=== PATIENT | male | born 1965 | race Caucasian/White ===

== ENCOUNTER → 2019-09-08 11:05 | Outpatient (BNVA) | payer OTHER, SELFPAY | PROVIDERS: Family Provider Family Medicine; PCP Family Medicine; Visit Provider Family Medicine | DX: Z13.6 Encounter for screening for cardiovascular disorders (principal); Z13.220 Encounter for screening for lipoid disorders; I50.30 Unspecified diastolic (congestive) heart failure; N52.9 Male erectile dysfunction, unspecified; F51.01 Primary insomnia | CPT/HCPCS: 80048; 80061 ==

== ENCOUNTER → 2019-10-12 10:35 | Outpatient (BNVA) | payer OTHER, SELFPAY | PROVIDERS: Family Provider Family Medicine; PCP Family Medicine; Visit Provider Family Medicine | DX: I10 Essential (primary) hypertension (principal); I25.810 Atherosclerosis of coronary artery bypass graft(s) without angina pectoris; G89.18 Other acute postprocedural pain | CPT/HCPCS: 80048 ==

== ENCOUNTER → 2019-11-02 17:35 | Outpatient (BNVA) | payer OTHER, SELFPAY | PROVIDERS: Family Provider Family Medicine; PCP Family Medicine; Visit Provider Family Medicine | DX: I11.0 Hypertensive heart disease with heart failure (principal); I50.9 Heart failure, unspecified; I25.810 Atherosclerosis of coronary artery bypass graft(s) without angina pectoris; G89.18 Other acute postprocedural pain; M62.830 Muscle spasm of back | CPT/HCPCS: 80048 ==

== ENCOUNTER 2020-01-26 14:16 | Outpatient (CLI) | payer OTHER, SELFPAY ==
--- NOTE | 2020-01-26 14:23 | XR_ITS ---
WS: [id number] CHEST 2 VIEWS HISTORY: chest pain COMPARISON: None available. Lungs: Mild hyperexpansion of the lungs. Benign granuloma RIGHT lung base. Prior CABG. Cardiac size: Normal. Mediastinum/Aorta: Normal mediastinum. Bones: Normal. XR/XR chest 2V* [id number] IMPRESSION: Prior CABG. No acute cardiopulmonary disease.
== END 2020-01-26 14:17 | disposition home or self-care (01) ==
LOC: RAD 14:20
PROVIDERS: PCP Family Medicine; Visit Provider Hospitalist
DX: R07.9 Chest pain, unspecified (principal); Z95.1 Presence of aortocoronary bypass graft
CPT/HCPCS: 71046

== ENCOUNTER → 2020-04-05 18:04 | Outpatient (BNVA) | payer OTHER, SELFPAY | PROVIDERS: PCP Family Medicine; Visit Provider Family Medicine | DX: M62.830 Muscle spasm of back (principal); I10 Essential (primary) hypertension; I25.810 Atherosclerosis of coronary artery bypass graft(s) without angina pectoris; G89.18 Other acute postprocedural pain | CPT/HCPCS: 80048 ==

== ENCOUNTER → 2020-05-10 15:30 | Outpatient (BNVA) | payer OTHER, SELFPAY | PROVIDERS: PCP Family Medicine; Visit Provider Emergency Medicine | DX: S99.922A Unspecified injury of left foot, initial encounter (principal); X58.XXXA Exposure to other specified factors, initial encounter | CPT/HCPCS: 73660 ==

== ENCOUNTER 2020-11-29 09:02 | Outpatient (CLI) | payer OTHER, SELFPAY ==
--- NOTE | 2020-11-29 09:15 | ECG_ITS ---
[facility] Test Date: 2020-11-29 Pat Name: Juancho Valencia Department: Room: Gender: Male Box Packer: : 1965 Requested By: Didi Hopper Order Number: [id number] Fox MD: Didi Hopper M.D. Interpretive Statements NAME OF STUDY: LEXISCAN SESTAMIBI STRESS TEST INDICATION: Dyspnea on Exertion PROCEDURE: At the baseline, the blood pressure was 145/88 mm Hg with a heart rate of 56 bpm. The electrocardiogram showed sinus bradycardia, normal axis and possible old anteroseptal infarct. ??? The Lexiscan was infused over a period of 20 seconds. A total of 0.4 milligrams of Lexiscan was infused. The stress phase was continued for a total of 5 minutes. Heart rate at the end of the stress phase was 81 bpm with a blood pressure of 153/94 mm Hg. The EKG at the peak infusion revealed sinus rhythm with no significant ST-T wave changes. Isolated PVC's noted during stress and in recovery. ??? Sestamibi was injected 20 seconds after the Lexiscan infusion. ??? Blood pressure at the end of the recovery phase was 156/98 mm Hg with a heart rate of 76 beats per minute. ??? CONCLUSION: 1. No significant EKG changes with the LexiScan infusion. 2. No LexiScan induced chest pain or cardiac arrhythmia. 3. Normal blood pressure and heart rate response. 4. Sestamibi/sestamibi perfusion scan pending; see separate report. RESULTS TO PAYAM PLASCENCIA Electronically Signed On 12-02-2020 21:20:56 CDT by Didi Hopper M.D. [id number]
--- NOTE | 2020-11-29 09:15 | NMCV_ITS ---
NM regis perf SPECT r/s* [id number] Juancho Valencia Age: 55 Gender: M : 1965 Exam Date: 11/29/2020 10:48 Ordering Phys: Didi Hopper MD ([email or web address]) Technologist: CIARA Chan Exam Location: [facility] Indications: Dyspnea on exertion STRESS TEST Please see separate stress test report in [facility] for full findings IMAGE PROTOCOL Rest/Stress 1 Lexiscan Day Radiopharmaceutical Dose (mCi) Administration Site Administered by Rest: Tc-99m 11.0 IV CIARA Chan Sestamibi Stress:Tc-99m 32.6 IV CIARA Chan Sestamibi Rest: 29-Nov-2020 60 Discovery 630 Stress: 29-Nov-2020 45 Discovery 630 0.4mg Lexiscan. Images obtained in supine and prone position. SPECT RESULTS Technical Quality: Good Raw Data Analysis: Normal Image Corrections: No attenuation or motion correction applied Summed Stress Score: 9 Summed Rest Score: 1 Summed Difference Score: 8 PERFUSION FINDINGS Small sized perfusion abnormality of moderate severity of mid to apical lateral, apical inferior and sharma on stress images. FUNCTIONAL RESULTS (calculated via Gated SPECT) Stress Image LV EF (%): 53 Stress EDV (mL):119 TID: 1.14 Stress ESV (mL):56 FUNCTIONAL FINDINGS: The left ventricle is normal in size. Transient Ischemia Dilatation of 1.1. There is normal left ventricular systolic function. The left ventricular ejection fraction is normal with a value of 53%. There is normal left ventricular wall thickening. Normal end diastolic and end systolic volumes. IMPRESSIONS 1. Small sized reversible perfusion abnormality of moderate severity of mid to apical lateral, apical inferior and sharma. 2. This may represent small area of ischemia in right coronary/circumflex artery territory. 3. Overall left ventricular systolic function is normal without regional wall motion abnormalities. 4. The left ventricular ejection fraction is normal with a value of 53%. 5. No prior similar studies to compare. Didi Hopper MD (Electronically Signed) Final Date: 02 December 2020 21:54 S
[2020-11-29 09:29] VITALS: BMI 32.1
--- NOTE | 2020-11-29 11:26 | SUR.PREOP ---
Patient reports no pain or discomfort prior to the start of the procedure.
[2020-11-29] MEDS: regadenoson 0.4 Mg/5 ml Syringe IVP (11:27)
[2020-11-29 11:45] VITALS: BP 156/78; PULSE 78
== END 2020-11-29 09:03 | disposition home or self-care (01) ==
LOC: RAD 09:09 → CDL 09:26
PROVIDERS: PCP Family Medicine; Visit Provider Internal Medicine Cardiovascular Disease
DX: R06.00 Dyspnea, unspecified (principal)
CPT/HCPCS: 78452; 93017; A9500; J2785

== ENCOUNTER → 2021-02-23 10:01 | Outpatient (BNVA) | payer OTHER, SELFPAY | PROVIDERS: PCP Family Medicine; Visit Provider Nurse Practitioner Family | DX: N39.0 Urinary tract infection, site not specified (principal) | CPT/HCPCS: 81000 ==

== ENCOUNTER → 2021-03-14 14:52 | Outpatient (BNVA) | payer OTHER, SELFPAY | PROVIDERS: PCP Family Medicine; Visit Provider Family Medicine | DX: E78.5 Hyperlipidemia, unspecified (principal); I50.21 Acute systolic (congestive) heart failure; J44.9 Chronic obstructive pulmonary disease, unspecified; I11.0 Hypertensive heart disease with heart failure | CPT/HCPCS: 80053; 80061; 83735; 85025 ==

== ENCOUNTER → 2021-04-13 18:45 | Outpatient (BNVA) | payer OTHER, SELFPAY | PROVIDERS: PCP Family Medicine; Visit Provider Emergency Medicine | DX: M25.521 Pain in right elbow (principal); Z20.822 Contact with and (suspected) exposure to COVID-19 | CPT/HCPCS: 87635 ==

== ENCOUNTER → 2021-05-08 14:34 | Outpatient (BNVA) | payer OTHER, SELFPAY | PROVIDERS: PCP Family Medicine; Visit Provider Family Medicine | DX: I12.9 Hypertensive chronic kidney disease with stage 1 through stage 4 chronic kidney disease, or unspecified chronic kidney disease; M79.631 Pain in right forearm; I25.810 Atherosclerosis of coronary artery bypass graft(s) without angina pectoris; F51.01 Primary insomnia; M62.830 Muscle spasm of back; N18.31 Chronic kidney disease, stage 3a; G89.29 Other chronic pain; G89.18 Other acute postprocedural pain | CPT/HCPCS: 80048; 81000 ==

== ENCOUNTER → 2021-05-29 09:02 | Outpatient (BNVA) | payer OTHER, SELFPAY | PROVIDERS: PCP Family Medicine; Referring Provider Family Medicine; Visit Provider Specialist | DX: M25.521 Pain in right elbow (principal) | CPT/HCPCS: 73080 ==

== ENCOUNTER → 2021-06-05 14:52 | Outpatient (BNVA) | payer OTHER, SELFPAY | PROVIDERS: PCP Family Medicine; Referring Provider Family Medicine; Visit Provider Specialist | DX: R20.0 Anesthesia of skin (principal); R20.2 Paresthesia of skin | CPT/HCPCS: 95908 ==

== ENCOUNTER 2021-06-24 15:01 | Outpatient (CLI) | payer OTHER, SELFPAY ==
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
== END 2021-06-24 15:02 | disposition home or self-care (01) ==
PROVIDERS: PCP Family Medicine; Visit Provider Specialist
DX: M25.521 Pain in right elbow (principal); M25.421 Effusion, right elbow
CPT/HCPCS: 73221

== ENCOUNTER → 2022-04-29 09:35 | Outpatient (BNVA) | payer OTHER, SELFPAY | PROVIDERS: PCP Family Medicine; Visit Provider Family Medicine | DX: I10 Essential (primary) hypertension (principal); I50.9 Heart failure, unspecified; I25.810 Atherosclerosis of coronary artery bypass graft(s) without angina pectoris; M79.631 Pain in right forearm; M79.18 Myalgia, other site; G89.29 Other chronic pain; F51.01 Primary insomnia; M62.830 Muscle spasm of back; M25.561 Pain in right knee; R07.89 Other chest pain; E78.5 Hyperlipidemia, unspecified | CPT/HCPCS: 71046; 73562; 80053; 80061 ==

== ENCOUNTER → 2022-05-30 08:26 | Outpatient (BNVA) | payer OTHER, SELFPAY | PROVIDERS: PCP Family Medicine; Visit Provider Student in an Organized Health Care Education/Training Program | DX: M25.561 Pain in right knee (principal); M23.361 Other meniscus derangements, other lateral meniscus, right knee | CPT/HCPCS: 73562; 73560; 73565; 99203; 99213 ==

== ENCOUNTER 2022-08-26 12:37 | Outpatient (CLI) | payer OTHER, SELFPAY ==
--- NOTE | 2022-08-26 13:00 | MR_ITS ---
WS: [id number] MRI RIGHT KNEE HISTORY: RIGHT PATELLA PAIN COMPARISON: Radiographs 05/30/2022 Anterior cruciate ligament: Intact. Posterior cruciate ligament: Intact. Medial collateral ligament: Intact. Posterior lateral corner structures: Intact. Medial menisci: Intrasubstance degeneration in the posterior horn. There is a horizontal tear extendi ng to the inferior articular surface with fraying along the free edge of the posterior horn. Anterior horn is normal. Lateral meniscus: Intact. Normal signal, size and shape. Extensor mechanism: Distal quadriceps tendon and patellar tendons are intact. Fluid and soft tissue: Small joint effusion. No Franco's cyst. Osseous and articular structures: Patellofemoral compartment: Mild narrowing of patellofemoral joint space. Very mild fissuring involvi ng the patellar eminence and medial patellar facet. No marrow edema or displacement. Medial compartment: Mild narrowing of the medial compartment. There is a superficial defect within th e cartilage along the weightbearing surface of the femoral condyle. This is at the site of meniscal f raying of the posterior horn. No marrow edema. Lateral compartment: Small amount of fluid in the lateral proximal compartment extending into the int ercondylar notch. There is a very small loculated mass with cystic component within the infrapatellar fat pad extending to the distal ACL. This may be a small ganglion measuring 11 x 8 mm. MR/MR knee RT wo con* [id number] IMPRESSION: 1. Horizontal tear posterior horn medial meniscus with adjacent fraying of the free edge. 2. Focal cartilage injury weightbearing surface medial femoral condyle. 3. Lobulated cystic mass measuring 11 x 8 mm in the infrapatellar fat pad asso ciated with the distal ACL. Suspicious for ganglion. 4. Small joint effusion.
== END 2022-08-26 12:38 | disposition home or self-care (01) ==
LOC: RAD 12:38
PROVIDERS: PCP Family Medicine; Visit Provider Student in an Organized Health Care Education/Training Program
DX: M25.461 Effusion, right knee; S83.241A Other tear of medial meniscus, current injury, right knee, initial encounter; X58.XXXA Exposure to other specified factors, initial encounter
CPT/HCPCS: 73721

== ENCOUNTER 2022-09-05 15:27 | Emergency (ER) | payer OTHER, SELFPAY ==
[2022-09-05 15:31] VITALS: BP 176/116; PULSE 70; RESP 16; TEMP 36.9; O2SAT 98; BMI 32.8
--- NOTE | 2022-09-05 16:34 | ED_ITS ---
HPI - Extremity Problem General: Chief complaint: Extremity Problem,Nontraumatic Stated complaint: right leg numbness Time Seen by Provider: 09/05/22 16:05 Source: patient Mode of arrival: ambulatory History of Present Illness: 56-year-old male who presents to the emergency room complaints of left leg weakness and numbness that began suddenly earlier today around 10:00 yesterday he had an injection in the left knee for pain with steroid injection while he was walking swelling suddenly he was unable to move the leg. It only affects the right leg and only affects from the knee distally. He states he still cannot move it. MD Complaint: other (Right lower leg paresthesias and anesthesia) Onset (ago): hour(s) Pain Consistency: constant Location: right and lower extremity Quality: other (Anesthesia) Radiation: distal Relieving factors: nothing Exacerbating factors: nothing Associated symptoms: Deny arthralgias, chest pain, fever(s), myalgias, rash or short of breath Review of Systems Const: Denies: fever(s), chills, fatigue or malaise ENMT: Denies: throat pain, ear or mastoid pain, nasal discharge or nasal congestion Card: Denies: chest pain Resp: Denies: dyspnea, productive cough or non-productive cough GI: Denies: abdominal pain, nausea, vomiting, hematemesis, coffee ground emesis, diarrhea, constipation, bloating, hematochezia or melena : Denies: flank pain, dysuria, urinary frequency or urinary urgency Musc: Reports: other (Extremity weakness and numbness); Denies: neck pain or back pain Skin/Breast: Denies: rash PFSH ED PFSH: Medical History Coronary artery disease involving coronary bypass graft 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 Dyslipidemia Erectile dysfunction Essential hypertension GERD (gastroesophageal reflux disease) Onychomycosis Primary insomnia Surgical History H/O heart surgery History of appendectomy History of colonoscopy History of right knee surgery Social History Quit status (tobacco): has quit using tobacco Year quit tobacco: 2019 Second hand smoke exposure: No Alcohol intake: never History of recent travel: No Physical Exam Const: GENERAL APPEARANCE: cooperative and comfortable ORIENTATION/CONSCIOUSNESS: Yes awake, Yes oriented to person, Yes oriented to place and Yes oriented to time HENMT: COMMON NORMALS: normocephalic and atraumatic HEAD & SCALP: normocephalic and atraumatic Resp: COMMON NORMALS: normal respiratory effort, No retractions, No use of accessory muscles and clear to auscultation bilaterally AUSCULTATION: clear to auscultation bilaterally Cardio: COMMON NORMALS: regular rate, regular rhythm and No murmurs present (Cardio) RATE: regular rate RHYTHM: regular rhythm GI: COMMON NORMALS: Soft to palpation and No hepatosplenomegaly present AUS CULTATION: Yes normoactive bowel sounds PALPATION: Yes Soft to palpation, No Tenderness to palpation present (GI), No Guarding due to palpation present (GI) and Yes No hepatosplenomegaly present Extremity: COMMON NORMALS: normal to inspection OTHER: Peripheral pulses normal bilaterally Patient consents sharp touch on the sole of the foot he states that actually fe els good only scratch the foot and attempt to do a Babinski's he does not have much reaction at all and how with attempt on the density reflex. Unable to elicit Achilles tendon reflex on the right leg patellar tendon +2/4. Sensation absent to the level of the knee and a small area on the lateral distal thigh on the right leg the remainder of the right upper leg sensation is equal to the labs. No other extremity deficits with right compared to left. He is unable to flex at the knee he can flex slightly at the hip but is very weak. The left leg is normal. Neuro: SENSORIUM/ORIENTATION: Yes oriented to person, Yes oriented to place and Yes oriented to time Skin: COMMON NORMALS: no rashes or lesions noted GENERAL SKIN EXAM: no rashes or lesions noted Course Vital Signs: Vital signs: Vital Signs Temperature 98.4 F 09/05/22 15:31 Pulse Rate 70 09/05/22 15:31 Respiratory Rate 16 09/05/22 15:31 Blood Pressure 182/95 09/05/22 17:29 Pulse Oximetry 98 09/05/22 15:31 Oxygen Delivery Me thod 09/05/22 15:31 MDM - Extremity (Nontraumatic) Medical Decision Making Care signed out to Dr. Lugo at change of shift. See final notes for diagnosis and disposition. Lab Data 09/05/22 17:11 09/05/22 17:[address] 09/05/22 17:00 IMPRESSION: Negative CT examination of the head. No acute intracranial abnormalities. Laboratory Results WBC 7.6 10^3/uL (4.0-10.0) 09/05/22 17:11 RBC 4.98 10^6/uL (4.1-5.3) 09/05/22 17:11 Hgb 15.7 g/dL (11.7-16.6) 09/05/22 17:11 Hct 46.5 % (42.0-52.0) 09/05/22 17:11 MCV 93.4 fl (80-94) 09/05/22 17:11 MCH 31.5 pg (28.0-34.0) 09/05/22 17:11 MCHC 33.8 g/dL (30.0-36.0) 09/05/22 17:11 RDW 13.2 % (12.1-15.1) 09/05/22 17:11 Plt Count 215 10^3/cmm (130-400) 09/05/22 17:11 MPV 10.1 fL (7.4-10.4) 09/05/22 17:11 Neut % (Auto) 68.4 % 09/05/22 17:11 Lymph % (Auto) 18.9 % 09/05/22 17:11 [place] % (Auto) 10.2 % 09/05/22 17:11 Eos % (Auto) 1.7 % 09/05/22 17:11 Baso % (Auto) 0.5 % 09/05/22 17:11 Neut # (Auto) 5.20 10^3/uL (1.8-7.7) 09/05/22 17:11 Lymph # (Auto) 1.4 10^3/uL (0.8-4.8) 09/05/22 17:11 [place] # (Auto) 0.8 10^3/uL (0.2-0.9) 09/05/22 17:11 Eos # (Auto) 0.1 10^3/uL (0.0-0.8) 09/05/22 17:11 Baso # (Auto) 0.0 10^3/uL (0.0-0.1) 09/05/22 17:11 Nucleated RBC % (auto) 0 % 09/05/22 17:11 Nucleated RBCs # 0.0 /100WBC 09/05/22 17:11 Sodium 136 mmol/L (136-145) 09/05/22 17:11 Potassium 4.0 mmol/L (3.5-5.1) 09/05/22 17:11 Chloride 104 mmol/L (98-107) 09/05/22 17:11 Carbon Dioxide 23 mmol/L (22-29) 09/05/22 17:11 Anion Gap 13.0 (5-19) 09/05/22 17:11 BUN 15 mg/dL (6-20) 09/05/22 17:11 Creatinine 1.0 mg/dL (0.7-1.2) 09/05/22 17:11 Glucose 81 mg/dL (65-115) 09/05/22 17:11 Calcium 8.7 mg/dL (8.5-10.5) 09/05/22 17:11 Total Bilirubin 0.2 mg/dL (0.15-1.2) 09/05/22 17:11 AST 24 U/L (0-40) 09/05/22 17:11 ALT 36 U/L (0-41) 09/05/22 17:11 Alkaline Phosphatase 81 U/L (40-130) 09/05/22 17:11 Total Protein 7.8 g/dL (6.6-8.7) 09/05/22 17:11 Albumin 4.5 g/dL (3.5-5.2) 09/05/22 17:11 Globulin 3.3 g/dL (1.3-4.6) 09/05/22 17:11 Discharge Plan Discharge Condition: Stable Prescriptions: No Action nitroglycerin 0.4 mg tablet, sublingual 0.4 mg sublingual Q5M PRN (Reason: chest pain) Qty: 25 3RF Rx Instructions: do not exceed 3 doses per episode metoprolol succinate 25 mg tablet extended release 24 hr 25 mg PO DAILY amlodipine 10 mg tablet 10 mg PO DAILY 90 Days Qty: 90 1RF furosemide [Lasix] 20 mg tablet 20 mg PO BID PRN (Reason: edema) 90 Days Qty: 180 1RF Rx Instructions: take 1 daily, may take 2 if needed as directed by aspirin [Adult Low Dose Aspirin] 81 mg tablet,delayed release (DR/EC) 81 mg PO DAILY Qty: 90 1RF isosorbide mononitrate 30 mg tablet extended release 24 hr 30 mg PO DAILY 90 Days Qty: 90 1RF gabapentin 400 mg capsule 400 mg PO TID MDD 3 caps PRN (Reason: pain) 30 Days Qty: 90 5RF potassium chloride 10 mEq tablet extended release 10 meq PO DAILY 90 Days Qty: 90 1RF trazodone 100 mg tablet 100 mg PO .at bedtime 90 Days Qty: 90 1RF tizanidine 4 mg tablet 4 mg PO BID PRN (Reason: muscle spasticity) 30 Days Qty: 60 5RF Rx Instructions: for back pain Referrals: Mariela Hein MD [Primary Care Provider] - Coding Level of Care Code ED Terrazzo Tile Maker for Chg Fwd Exam Detailed
--- NOTE | 2022-09-05 16:58 | USR_ITS ---
PROCEDURE INFORMATION: Exam: US Duplex Right Lower Extremity Veins, Limited Exam date and time: 09/05/2022 5:35 PM Age: 56 years old Clinical indication: Swelling (edema) of limb and other: Parathesia; Lower extremity, right TECHNIQUE: Imaging protocol: Real-time Duplex ultrasound of the Right Lower Extremity with 2-D jansen scale, color Doppler flow and spectral waveform analysis with image documentation. Limited exam was focused on the right lower extremity veins. COMPARISON: No relevant prior studies available. FINDINGS: Right deep veins: Unremarkable. The common femoral, femoral, proximal profunda femoral, popliteal, posterior tibial, and peroneal veins are patent without thrombus. Normal Doppler waveforms. Normal compressibility and/or augmentation response. Right superficial veins: Unremarkable. Saphenofemoral junction is patent without thrombus. Soft tissues: Unremarkable. US/[place] [id number] IMPRESSION: No evidence for deep venous thrombosis in the right lower extremity.
--- NOTE | 2022-09-05 16:58 | CTR_ITS ---
PROCEDURE INFORMATION: Exam: CT Lumbar Spine With Contrast Exam date and time: 09/05/2022 5:19 PM Age: 56 years old Clinical indication: Weakness; Additional info: R leg weakness TECHNIQUE: Imaging protocol: Computed tomography of the lumbar spine with contrast. Sagittal and coronal reformatted images were created and reviewed. Radiation optimization: All CT scans at this facility use at least one of these dose optimization techniques: automated exposure control; mA and/or kV adjustment per patient size (includes targeted exams where dose is matched to clinical indication); or iterative reconstruction. Contrast material: OMNI 350; Contrast volume: 100 ml; Contrast route: INTRAVENOUS (IV); COMPARISON: No relevant prior studies available. RADIATION DOSE METRICS: Total DLP (mGy-cm): 877.89 FINDINGS: Bones/joints: Vertebral body height is maintained. No subluxation. Normal bone mineralization. Small/moderate marginal osteophytes at all visualized spinal levels. No acute fracture. No evidence for an epidural hematoma. No evidence for an epidural abscess. T12-L1: Mild bilateral facet hypertrophy. L1-L2: Small broadbased posterior disc bulge. Mild bilateral facet hypertrophy. L2-L3: Small broadbased posterior disc bulge with a left foraminal disc herniation. Mild bilateral facet hypertrophy. Mild left foraminal stenosis. L3-L4: Mild to moderate broad-based posterior disc bulge. Mild bilateral facet hypertrophy. Mild ligamentum flavum thickening. Mild spinal canal stenosis. Mild left foraminal stenosis. L4-L5: Mild to moderate broad-based posterior disc bulge. Mild bilateral facet hypertrophy. Mild ligamentum flavum thickening. Mild spinal canal stenosis. Mild bilateral foraminal stenosis. L5-S1: Jgmf-tq-puvamiai broad-based posterior disc bulge. Mild bilateral facet hypertrophy. Mild ligamentum flavum thickening. Mild bilateral foraminal stenosis. Kidneys and ureters: Simple cyst in the left kidney measuring 2.4 cm (series 5, image 46). Vasculature: Mild atherosclerotic changes in the visualized arteries. No evidence for aortic aneurysm or aortic dissection. Soft tissues: No paravertebral soft tissue abnormality. No radiopaque foreign body. CT/CT lumbar spine w con [id number] IMPRESSION: 1. Multilevel degenerative changes in the lumbar spine. Mild spinal canal stenosis at L3-L4, L4-L5, and L5-S1. Mild left foraminal stenosis at L2-L3 and L3-L4, mild right foraminal stenosis at L3-L4 and mild bilateral foraminal stenosis at L4-L5 and L5-S1. 2. Incidental/nonacute findings are listed in the report.
--- NOTE | 2022-09-05 16:58 | USR_ITS ---
PROCEDURE INFORMATION: Exam: US Duplex Right Lower Extremity Arteries Or Arterial Bypass Grafts Exam date and time: 09/05/2022 5:44 PM Age: 56 years old Clinical indication: Pain; Leg, lower; Right; Additional info: Parathesia TECHNIQUE: Imaging protocol: Right Real-time duplex scan of the arteries or arterial bypass grafts of the right lower extremity with 2-D jansen scale, color Doppler flow and spectral waveform analysis. Images documented and saved. COMPARISON: [place] [id number] 09/05/2022 5:35 PM FINDINGS: Right common femoral artery: No occlusion or significant stenosis. Normal waveform. No pseudoaneurysm in the inguinal region. Right superficial femoral artery: No occlusion or significant stenosis. Normal waveform. Right popliteal artery: No occlusion or significant stenosis. Normal waveform. Right calf/foot arteries: No occlusion or significant stenosis in the visualized arteries. Normal waveforms. Dorsalis pedis artery is patent. Soft tissues: No hematoma or collection. US/[place] [id number] IMPRESSION: No stenosis or occlusion.
--- NOTE | 2022-09-05 17:00 | CTR_ITS ---
PROCEDURE INFORMATION: Exam: CT Head Without Contrast Exam date and time: 09/05/2022 5:16 PM Age: 56 years old Clinical indication: Weakness, extremity; Right; Additional info: R leg weakness TECHNIQUE: Imaging protocol: Computed tomography of the head without contrast. Radiation optimization: All CT scans at this facility use at least one of these dose optimization techniques: automated exposure control; mA and/or kV adjustment per patient size (includes targeted exams where dose is matched to clinical indication); or iterative reconstruction. COMPARISON: No relevant prior studies available. RADIATION DOSE METRICS: Total DLP (mGy-cm): 1088.15 FINDINGS: Brain: Normal. No hemorrhage. No space-occupying masses or areas of mass effect. No edema or midline shift. Cortical sulci are unremarkable for age. Cerebral ventricles: No ventriculomegaly. Paranasal sinuses: Visualized sinuses are unremarkable. No fluid levels. Mastoid air cells: Visualized mastoid air cells are well aerated. Bones/joints: Unremarkable. Soft tissues: Unremarkable. CT/CT head wo con* [id number] IMPRESSION: Negative CT examination of the head. No acute intracranial abnormalities.
[2022-09-05 17:20] LABS: Basophils % 0.5 %; Eosinophils # 0.1 10^3/uL (0.0-0.8); Eosinophils % 1.7 %; Hematocrit 46.5 % (42.0-52.0); Hemoglobin 15.7 g/dL (11.7-16.6); Lymphocytes # 1.4 10^3/uL (0.8-4.8); Lymphocytes % 18.9 %; Mean Corpuscular HGB Conc 33.8 g/dL (30.0-36.0); Mean Corpuscular Hemoglobin 31.5 pg (28.0-34.0); Mean Corpuscular Volume 93.4 fl (80-94); Mean Platelet Volume 10.1 fL (7.4-10.4); Monocytes # 0.8 10^3/uL (0.2-0.9); Monocytes % 10.2 %; Neutrophils % 68.4 %; Nucleated Red Blood Cells % 0 %; Platelet Count 215 10^3/cmm (130-400); Red Blood Count 4.98 10^6/uL (4.1-5.3); Red Cell Distribution Width 13.2 % (12.1-15.1); White Blood Count 7.6 10^3/uL (4.0-10.0)
[2022-09-05 17:29] VITALS: BP 182/95
[2022-09-05 17:45] LABS: Alanine Aminotransferase 36 U/L (0-41); Albumin Level 4.5 g/dL (3.5-5.2); Alkaline Phosphatase 81 U/L (40-130); Aspartate Amino Transferase 24 U/L (0-40); Blood Urea Nitrogen 15 mg/dL (6-20); Calcium 8.7 mg/dL (8.5-10.5); Carbon Dioxide 23 mmol/L (22-29); Chloride 104 mmol/L (98-107); Globulin 3.3 g/dL (1.3-4.6); Glomerular Filtration Rate 76.7 mL/min (90-130); Glucose 81 mg/dL (65-115); Osmolality Calculated 282 mOsm/kg (285-295); Sodium 136 mmol/L (136-145); Total Bilirubin 0.2 mg/dL (0.15-1.2); Total Protein 7.8 g/dL (6.6-8.7)
[2022-09-05 20:00] VITALS: BP 172/97; PULSE 56; RESP 18; O2SAT 98
[2022-09-05 21:00] VITALS: BP 172/97; PULSE 66; RESP 19; O2SAT 97
== END 2022-09-05 21:04 | disposition home or self-care (01) ==
PROVIDERS: Family Medicine; Emergency Provider Emergency Medicine; PCP Family Medicine
DX: R20.0 Anesthesia of skin (principal); R53.1 Weakness; Z79.82 Long term (current) use of aspirin; I25.810 Atherosclerosis of coronary artery bypass graft(s) without angina pectoris; E78.5 Hyperlipidemia, unspecified; I10 Essential (primary) hypertension; Z87.891 Personal history of nicotine dependence
CPT/HCPCS: 70450; 72132; 80053; 85025; 93926; 93971; 99284; Q9967

== ENCOUNTER → 2022-10-13 16:24 | Outpatient (BNVA) | payer OTHER, SELFPAY | PROVIDERS: PCP Family Medicine; Visit Provider Emergency Medicine | DX: Z20.822 Contact with and (suspected) exposure to COVID-19 (principal); J20.9 Acute bronchitis, unspecified | CPT/HCPCS: 87426 ==

== ENCOUNTER → 2022-10-20 13:41 | Outpatient (BNVA) | payer OTHER, SELFPAY | PROVIDERS: PCP Family Medicine; Visit Provider Nurse Practitioner Family | DX: R06.02 Shortness of breath (principal) | CPT/HCPCS: 71046 ==

== ENCOUNTER 2022-10-29 05:29 | Day surgery (SDC) | payer OTHER, SELFPAY ==
[2022-10-28 09:10] VITALS: BMI 32.9
[2022-10-29] VITALS (11 sets, daily range): BP systolic 118–146; BP diastolic 76–97; PULSE 70–87; RESP 15–18; TEMP 36.2–36.6; O2SAT 95–100
[2022-10-29] MEDS: sodium chloride 0.9% 1,000 ML 30 ML IV (06:17)
[2022-10-29] MEDS: ketorolac 30 mg/mL INJ IVP (06:17)
[2022-10-29] MEDS: acetaminophen 1,000 MG/100 ML PIGGYBACK 400 MG IV (06:20)
--- NOTE | 2022-10-29 06:29 | ECG_ITS ---
[facility] Test Date: 2022-10-29 Pat Name: Juancho Valencia Department: Room: Gender: Male Senior Training Specialist: : 1965 Requested By: Benedict Schulz Order Number: [id number] Fox MD: Joshua Reis M.D. Measurements Intervals [place] Rate: 61 P: 45 MO: 198 QRS: 8 QRSD: 103 T: 10 QT: 409 QTc: 413 Interpretive Statements SINUS RHYTHM POSSIBLE ANTERIOR MYOCARDIAL INFARCTION , OF INDETERMINATE AGE [30 ms Q WAVE IN V3/V4, OR R < 0.2 mV IN V4] No previous ECG available for comparison Electronically Signed On 10-29-2022 16:20:29 EQUIPMENT INSPECTOR by Joshua Reis M.D. [id number]
--- NOTE | 2022-10-29 06:50 | W.PM.OPSFHP ---
Same Day Surgery H&P Indication for Procedure/HPI DATE OF PROCEDURE: October 29, 2022 CHIEF COMPLAINT/INDICATIONFOR SURGICAL PROCEDURE: Right knee medial meniscus tear, knee ganglion cyst, possible lateral meniscus tear. PREOP DIAGNOSIS: Right knee medial meniscus tear, knee ganglion cyst PLANNED PROCEDURE: Operation Date: 10/29/22 07:00 Proposed Procedures p Rt knee diagnostic and surgical arthroscopy with partial medial menisectomy. 97111,M25.569,S83.249A, M23.300(Right) - Benedict Schulz DO s Meniscectomy(Right) - Benedict Schulz DO Patient well-known to my service examination chino had findings concerning for lateral meniscus tear. 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 Initially we obtained an MRI and he was found to have a medial meniscus tear however his symptomatology on examination was more consistent with a lateral meniscus tear. With that finding we talked about treatment options and ultimately we agreed to proceeding with a knee corticosteroid injection to see what kind of relief he would get as more of a diagnostic and therapeutic purpose. This gave him only temporary relief and follow-up patient's pain is returned. Feels though next best option through shared decision making we talked about being a right knee diagnostic and surgical arthroscopy with partial medial meniscectomy and possible lateral meniscectomy given his symptoms. He does have a cyst on MRI this does appear to be scarred and beneath the intrameniscal ligament understands we will try and decompress if possible. Ultimately through shared decision making he elects proceed with surgical intervention. He understands risk benefits complication alternatives to surgical treatment options and agrees to proceed. Medications/Allergies* Home Medications Medication Instructions Recorded Confirmed Type metoprolol succinate 25 mg 25 mg PO DAILY 05/15/22 10/28/22 History tablet,extended release 24 hr Allergies/Adverse Reactions Allergy/AdvReac Type Severity Reaction Status Date / Time No Known Allergies Allergy Verified 10/29/22 06:01 Pertinent History/Comorbid Conditions* Medical History (Updated 10/20/22 @ 14:22 by Molly Monzon NP) Chronic obstructive pulmonary disease Coronary artery disease involving coronary bypass graft 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 Dyslipidemia Erectile dysfunction Essential hypertension GERD (gastroesophageal reflux disease) Medial meniscus tear Onychomycosis Primary insomnia Surgical History (Updated 10/15/21 @ 13:39 by Albaro Whitney MD) H/O heart surgery History of appendectomy History of colonoscopy History of right knee surgery Social History Quit status (tobacco): has quit using tobacco Year quit tobacco: 2019 Second hand smoke exposure: No Alcohol intake: never Pertinent Exam Findings alert, operative site marked and procedure specific exam findings Orthopedic examination: Examination of the right knee demonstrates patient has full range of motion.? He has tenderness to palpation over the lateral joint line and? slightly over the medial joint line.? Has a positive Taryn's laterally.? He has no evidence of patellar grind on examination or crepitus.? Negative varus valgus instability.? Negative Chasity's.? Patient is able to plantarflex and dorsiflex ankle.? Sensation tact light touch distally. Recommendations Surgery/Procedure today Other Plans: Patient is here today for surgery for right knee diagnostic and surgical arthroscopy with partial medial meniscectomy possible lateral meniscectomy chondroplasty and possible cyst decompression. He understands risk benefits complication alternatives to surgical and nonsurgical treatment options. Understanding his risk of surgery he elects to proceed with surgery today. All questions answered. Coding Level of Care Code Acute Code for Chg Fwd
[2022-10-29 06:52] LABS: Blood Urea Nitrogen 15 mg/dL (6-20); Calcium 8.9 mg/dL (8.5-10.5); Carbon Dioxide 19 mmol/L (22-29); Chloride 102 mmol/L (98-107); Glucose 105 mg/dL (65-115); Osmolality Calculated 281 mOsm/kg (285-295); Sodium 135 mmol/L (136-145)
[2022-10-29 06:56] LABS: Anion Gap 18.2 (5-19); Potassium 4.2 mmol/L (3.5-5.1)
--- NOTE | 2022-10-29 07:01 | W.PM.OPSUD ---
Surgery/Procedure H&P Update DATE OF PROCEDURE: October 29, 2022 DATE H&P PERFORMED: 09/22/22 CHANGES TO PREVIOUS DOCUMENTATION: None. PREOP DIAGNOSIS: Right knee medial meniscus tear, knee ganglion cyst PRIMARY INDICATION FOR PROCEDURE: Right knee medial meniscus tear and knee ganglion cyst PLANNED PROCEDURE: Operation Date: 10/29/22 07:00 Proposed Procedures p Rt knee diagnostic and surgical arthroscopy with partial medial menisectomy. 75559,M25.569,S83.249A, M23.300(Right) - Benedict Schulz DO s Meniscectomy(Right) - Benedict Schulz DO
[2022-10-29] MEDS: ceFAZolin 2,000 MG in sodium chloride 0.9% (plus) 50 ML 100 MG IV (07:04)
[2022-10-29] MEDS: lidocaine-epi 2% 20 mL INJ 40 ML INJECTION (08:00)
--- NOTE | 2022-10-29 08:24 | PC.NURSE ---
Pt arrived to PACU, awake, O2 via simple mask at 6L/min. Dressing to right knee C/D/I, right foot with cap refill <3 secs, pink, warm dry and able to wiggle toes.
--- NOTE | 2022-10-29 08:35 | PM.OP2 ---
Brief Operative Note Date of procedure: 10/29/22 Pre-op diagnosis: Right knee medial meniscus tear, knee ganglion cyst Post-op diagnosis: same (Lateral meniscus tear, medial and lateral chondromalacia) Procedure Done: Right knee diagnostic and surgical arthroscopy partial medial meniscectomy Right knee diagnostic and surgical arthroscopy partial lateral meniscectomy Right knee diagnostic and surgical arthroscopy medial and patellofemoral compartment chondroplasties Right knee diagnostic and surgical arthroscopy extensive synovectomy of the patellofemoral, medial and lateral compartments. Surgeon: Benedict Schulz Estimated blood loss (mL): 1 Complications: none Post-op Plan: Patient taken to PACU in stable condition recovering well. Dressing on in place clean dry and intact. Patient will receive appropriate discharge instructions as well as pain medication DVT prophylaxis. We will follow-up with me in the office in 2 weeks. Encourage knee range of motion may be weightbearing as tolerated to the right lower extremity. We will see him in 2 weeks contact the office for any questions or concerns Condition: stable Disposition: same day Coding Level of Care Code Acute Code for Jordon Renteria
--- NOTE | 2022-10-29 08:35 | PM.OP ---
Operative Report Date of procedure: October 29, 2022 Pre-op diagnosis: Preop Diagnosis Right knee medial meniscus tear, knee ganglion cyst Procedure: Post-op diagnosis: Right knee medial meniscus tear, lateral meniscus tear, medial and patellofemoral chondromalacia, extensive synovitis Procedure done: Right knee diagnostic and surgical arthroscopy with medial and patellofemoral compartment chondroplasty Right knee diagnostic and surgical arthroscopy with partial medial meniscectomy, and partial lateral meniscectomy Right knee diagnostic and surgical arthroscopy with extensive synovectomy medial, lateral, patellofemoral compartments. Surgeon: Benedict Schulz DO Estimated blood loss: 1mL No tourniquet used IV fluids: 900 mL Complications: none Condition: stable Disposition: same day Brief History: Patient's been seen and worked up in the outpatient setting had findings concerning for meniscal tear. In his work-up an MRI was obtained and found to have a medial meniscus tear. We talked about his treatment options and nonoperative intervention. Given his symptomatology was more on the lateral joint line we talked about the uncertainty of surgical intervention as far as if it would treat his lateral joint line pain given that he has a medial meniscus tear as result in the office we elected to proceed with a corticosteroid injection he did get noticeable relief with this however it was temporary. He reported back to my office at that point time given he had temporary relief and return of his symptoms we talked about his treatment options as far as nonoperative and operative intervention. Talked with the risk benefits complication alternatives to each. Ultimately through shared decision making agreed to proceed with a right knee diagnostic and surgical arthroscopy with partial medial meniscectomy and evaluation of the lateral meniscus. Also found to have a ganglion cyst underneath the intermittent vesicle ligament on MRI. He understands a component of this could be the chondromalacia on the MRI as well as he could be having referred pain from his medial meniscus ultimately understands that diagnostic and surgical arthroscopy may still have some residual pain afterwards and this may not cure all of his pain given the MRI does not completely correlate with his symptoms however at this point time he is failed conservative treatment I think the best next approach would be surgical arthroscopy. At this point time elects proceed with surgical intervention. Procedure: Patient seen and evaluated in the preoperative holding area.? Consent was reviewed and signed with patient.? Correct extremity was then marked.? Patient seen evaluated Anesthesia Department once cleared for surgery patient was taken back to the operative suite.? Patient was transported onto the OR table in supine position.? All bony prominences well-padded patient was appropriate secured to the bed.? Once appropriately anesthetized a nonsterile tourniquet was applied to the right thigh.? The right lower extremity was then prepped and draped in standard orthopedic fashion.? Final timeout performed.? Patient received appropriate preoperative antibiotics. Patient received local anesthetic of lidocaine with epinephrine into the joint as well as around the portal sites. No tourniquet was inflated during this case. A standard 2 portal vertical incision diagnostic and surgical arthroscopy of the right knee was performed in standard fashion.? Small stab incision made in the inferolateral portal introduced trocar and arthroscope into the suprapatellar pouch.? Suprapatellar pouch was subsequently visualized and found to have significant synovitis but no loose bodies.? Patient had noticeable significant infrapatellar fat pad and thickening hypertrophic within the patellofemoral compartment. The medial gutter was free of loose bodies I then introduced the arthroscope into the medial compartment.? Within the medial compartment I then established my inferior medial working portal utilizing spinal needle outside in technique.? Once established I then visualized our articular cartilage of the medial compartment with a valgus stress.? Patient was found to have grade 2?3 chondromalacia throughout the medial compartment most pronounced on the femoral condyle.? Next I inspected the meniscus.? With an arthroscopic probe arthroscopic probe was utilized to visual all aspects of the meniscus. Meniscal root was found to be intact however patient was found to have a complex flap tear of the posterior horn of the medial meniscus. Given this would not be a good candidate incapable for repair I subsequently utilizing basket forceps as well as arthroscopic shaver completed a partial medial meniscectomy to stable meniscal tissue. I then utilized a thermal wand to anneal the edges to complete my partial medial meniscectomy. Next a introduced the arthroscope to the intercondylar notch. ACL and PCL were intact. Patient had significant thickening of the infrapatellar fat pad spanning into the medial and lateral compartments. I then performed an extensive synovectomy with the arthroscopic shaver of the patellofemoral medial and lateral compartments as well as the intercondylar notch. At this point time I utilized the shaver right to the inner meniscal ligament. It was evident that there was no signs of impingement from the MRIs read ganglion cyst and I would have to destabilize the inner meniscal ligament just to get to this area and this was subsequently sided to be left alone as I do not feel as though this was causing any symptomatic pain given its significantly scarred and further distal in the. Next I introduced the arthroscope into the lateral compartment the lateral compartment was found to have grade I and II chondromalacia no significant articular defects were noted. Patient did have a small tearing throughout the lateral meniscus at the body and I subsequently introduced the arthroscopic shaver and basket forceps to perform a partial lateral meniscectomy and utilize a thermal wand to anneal the edges to stable meniscal tissue this completed my partial lateral meniscectomy and my medial compartment work. Next of the arthroscope was placed into the lateral gutter and this was free of loose bodies. Finally I reintroduced the arthroscope into the patellofemoral compartment. The patellofemoral was found to have grade I and II chondromalacia. I did have grade 2 underneath the patella and a thermal wand and shaver was used to perform a chondroplasty of the patella to stable articular tissue. Next I used the arthroscopic shaver to complete my extensive synovectomy and debridement of the infrapatellar thickened and hypertrophic fat pad to have complete space of the patellofemoral compartment on the medial aspect. Next I then switched the arthroscope to the medial working portal and visualized the extent extensive synovitis laterally and then introduced the arthroscopic shaver and completed my synovectomy. This completed patient's diagnostic and surgical arthroscopy. All fluid was suctioned from the joint. Once again hemostasis was satisfactory. All instruments were withdrawn.? Portal sites were closed with interrupted nylon suture.? Dressed with Xeroform 4 x 4's ABD Curlex and Sanjay wrap.? Patient was then subsequently awakened from anesthesia and taken to PACU in stable condition. Disposition: Patient taken to PACU in stable condition recovering well.? Will receive appropriate discharge structure as well as pain medication postoperatively as well as daily aspirin for DVT prophylaxis.? We will have patient follow-up with us in the office in 2 weeks.? Patient understands and agrees with current plan.? All questions answered.
--- NOTE | 2022-10-29 08:35 | PM.PACU ---
PACU note Narrative: Patient seen and examined. Patient recovering well pain controlled. Dressing on in place clean dry and intact. Patient is able to wiggle toes plantarflex and dorsiflex ankle sensation tact light touch distally. Distal pulses palpable. Exam: awake Disposition: discharged
[2022-10-29] MEDS: fentaNYL 50 mcg/mL INJ 2mL IVP (08:36)
--- NOTE | 2022-10-29 08:57 | PC.NURSE ---
pt transferred to OPS for phase 2. Awake, A&Ox4, dressing to right knee C/D/I, right foot pink, warm and dry. cap refill< 3 secs. able to wiggle toes. Ice pack in place.
[2022-10-29] MEDS: HYDROcodone-acetaminophen 5-325 mg Tablet 2 TAB PO (09:24)
--- NOTE | 2022-10-29 09:45 | P.ANESASSM_ITS ---
Pre-Anesthetic Assessment Height/Weight: Height 1.8 m Weight 107.048 kg Temp Pulse Resp BP Pulse Ox O2 Del Method O2 Flow Rate 97.1 F L 70 18 120/81 96 6 10/29/22 08:54 10/29/22 08:54 10/29/22 08:54 10/29/22 08:54 10/29/22 08:54 10/29/22 08:54 10/29/22 08:29 Preop Diagnosis: Right knee medial meniscus tear, knee ganglion cyst Operation Date: 10/29/22 07:00 Proposed Procedures p Rt knee diagnostic and surgical arthroscopy with partial medial menisectomy. 43811,M25.569,S83.249A, M23.300(Right) - Benedict Schulz DO s Meniscectomy(Right) - Benedict Schulz DO Familial anesthetic complications: none Was Beta Ronit taken within 24 hours: N/A Was Clonidine taken within 24 hours: N/A Last intake: Intake Last Liquid Date 10/28/22 Last Liquid Time 21:00 Last Solid Date 10/28/22 Last Solid Time 18:00 Social Tobacco and No alcohol Exam alert, oriented x 3 and regular rate & rhythm Airway Submandibular: within normal limits Cervical ROM: within normal limits Mallampati: Class II Dentition: false Pulmonary Chronic Obstructive Pulmonary Disease CV/HEM Coronary Artery Disease (CABG '20), Hypertension and Myocardial Infarction Chronic Renal Insufficiency Metabolic Hyperlipidemia and Morbid Obesity Anesthetic Plan ASA status: 3 Anesthesia: General and Regional (specify below) (right adductor blk) Medications/Allergies Home Medications Medication Instructions Recorded Confirmed Last Taken Type nitroglycerin 0.4 mg sublingual 0.4 mg sublingual Q5M PRN chest 10/30/21 10/28/22 Unknown Rx tablet pain #25 tabs amlodipine 10 mg tablet 10 mg PO DAILY 90 days #90 tabs 04/29/22 10/28/22 Unknown Rx aspirin 81 mg tablet,delayed 81 mg PO DAILY #90 tabs 04/29/22 10/28/22 10/25/22 Rx release (Adult Low Dose Aspirin) furosemide 20 mg tablet (Lasix) 20 mg PO BID PRN edema 90 days 04/29/22 10/28/22 10/26/22 Rx #180 tabs gabapentin 400 mg capsule 400 mg PO TID PRN pain 30 days #90 04/29/22 10/28/22 Unknown Rx caps isosorbide mononitrate 30 mg 30 mg PO DAILY 90 days #90 tabs 04/29/22 10/28/22 10/25/22 Rx tablet,extended release 24 hr potassium chloride 10 mEq 10 meq PO DAILY 90 days #90 tabs 04/29/22 10/28/22 10/28/22 Rx tablet,extended release tizanidine 4 mg tablet 4 mg PO BID PRN muscle spasticity 04/29/22 10/28/22 Unknown Rx 30 days #60 tabs trazodone 100 mg tablet 100 mg PO .at bedtime 90 days #90 04/29/22 10/28/22 10/27/22 Rx tabs metoprolol succinate 25 mg 25 mg PO DAILY 05/15/22 10/28/22 10/29/22 History tablet,extended release 24 hr losartan 50 mg-hydrochlorothiazide 1 tab PO DAILY 90 days #90 tabs 09/08/22 10/28/22 10/28/22 Rx 12.5 mg tablet dextromethorphan-guaifenesin ER 60 1 tab PO BID PRN flu symptoms #30 10/16/22 10/28/22 Unknown Rx mg-1,200 mg tab,extend tabs release,12hr (Mucinex DM) albuterol sulfate 90 mcg/actuation 2 inh inhalation Q8H PRN shortness 10/20/22 10/28/22 Unknown Rx aerosol inhaler of breath or wheezing #6.7 grams ipratropium 0.5 mg-albuterol 3 mg 3 ml inhalation Q4H PRN wheezing 10/20/22 10/28/22 Unknown Rx (2.5 mg base)/3 mL nebulization #90 mL soln calcium carbonate 600 mg-vitamin 1 ea PO BID 30 days #60 tabs 10/29/22 Unknown Rx D3 10 mcg (400 unit) tablet hydrocodone 5 mg-acetaminophen 325 2 tab PO Q6H PRN pain, 10/29/22 Unknown Rx mg tablet postoperative right knee surgery 7 days #35 tabs ondansetron 4 mg disintegrating 4 mg PO DAILY 5 days #5 tabs 10/29/22 Unknown Rx tablet Allergies Allergy/AdvReac Type Severity Reaction Status Date / Time No Known Allergies Allergy Verified 10/29/22 06:01 Current Medications Generic Name Dose Route Start Last Admin Trade Name Freq PRN Reason Stop Dose Admin Fentanyl 50 mcg 10/29/22 07:51 10/29/22 08:36 Fentanyl 50 Mcg/Ml Inj 2ml IVP 10/30/22 07:51 50 mcg Q5M PRN Administration Pain level 1-5 PACU Phase I Sodium Chloride 1,000 mls @ 30 mls/hr 10/29/22 06:00 10/29/22 06:17 Sodium Chloride 0.9% IV 10/30/22 05:59 30 mls/hr .Q24H ANNIE Administration PFSH Anesthesia Medical History (Reviewed 10/28/22 @ 06:57 by Nereyda Gerber [facility]) Chronic obstructive pulmonary disease Coronary artery disease involving coronary bypass graft 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 Dyslipidemia Erectile dysfunction Essential hypertension GERD (gastroesophageal reflux disease) Medial meniscus tear Onychomycosis Primary insomnia Surgical History H/O heart surgery History of appendectomy History of colonoscopy History of right knee surgery Social History (Reviewed 10/28/22 @ 06:57 by Nereyda Gerber [facility]) Quit status (tobacco): has quit using tobacco Year quit tobacco: 2019 Second hand smoke exposure: No Alcohol intake: never Data Anesthesia 10/29/22 06:14 BMP 10/29/22 06:14 Sodium 135 L Potassium 4.2 Chloride 102 Carbon Dioxide 19 L BUN 15 Creatinine 1.2 Glucose 105 Calcium 8.9 Cardiac Studies: Sestamibi Stress Test (Cardiology) 11/29 Anesthesia Procedures Nerve Block Nerve Block 1: Main Anesthesia: general anesthesia Time Out Performed: Yes Consent: requested by attending/covering physician, from patient, risks and benefits reviewed and patient agrees to proceed Nerve block location: adductor canal (right) Anesthesia monitors applied: pulse oximetry, EKG, BP cuff and oxygen Nerve block position: supine Anesthetic Used: ropivicaine 0.5% Amount of anesthesia used (mL): 20 Ultrasound used to: recognize landmarks Nerve Stimulator Used?: No Interscalene/Femoral BLK: 4 stimuplex 21 g needle used for position and inplane approach Injection: neg aspiration of heme Patient Tolerated Procedure: well Complications: none
--- NOTE | 2022-10-29 15:33 | ANE.PACU2 ---
Inpatient post-anesthesia follow up: Airway intact: Yes Vital signs: Temperature 97.1 F Pulse Rate 75 Respiratory Rate 18 Blood Pressure 118/76 Pulse Oximetry 96 Oxygen Delivery Me thod Room Air Oxygen Flow Rate 6 Fraction of Inspir ed Oxygen Hydration adequate: Yes Nausea and vomiting: No Pain level: 2 Mental status: Baseline
== END 2022-10-29 10:00 | disposition home or self-care (01) ==
PROVIDERS: PCP Family Medicine; Visit Provider Student in an Organized Health Care Education/Training Program
PROC: (CPT 29870; principal; 2022-10-29 07:00)
PROC: (CPT 29880; 2022-10-29 07:00)
DX: S83.241A Other tear of medial meniscus, current injury, right knee, initial encounter (principal); X58.XXXA Exposure to other specified factors, initial encounter; M22.41 Chondromalacia patellae, right knee; M65.9 Synovitis and tenosynovitis, unspecified; J44.9 Chronic obstructive pulmonary disease, unspecified; I25.10 Atherosclerotic heart disease of native coronary artery without angina pectoris; Z95.1 Presence of aortocoronary bypass graft; I10 Essential (primary) hypertension; I25.2 Old myocardial infarction; E78.5 Hyperlipidemia, unspecified; E66.01 Morbid (severe) obesity due to excess calories; Z68.32 Body mass index [BMI] 32.0-32.9, adult; Z79.82 Long term (current) use of aspirin; Z87.891 Personal history of nicotine dependence
CPT/HCPCS: 29880; 36415; 80048; 93005; J0131; J0330; J0690; J1100; J1885; J2250; J2370; J2405; J2704; J2795; J3010; J7030

== ENCOUNTER 2022-11-26 06:00 | Outpatient (RCR) | payer OTHER, SELFPAY | END 2022-11-28 23:59 | disposition home or self-care (01) | LOC: MPT 06:00 | PROVIDERS: PCP Family Medicine; Visit Provider Student in an Organized Health Care Education/Training Program | DX: Z47.89 Encounter for other orthopedic aftercare (principal) | CPT/HCPCS: 97161 ==

== ENCOUNTER 2022-11-29 06:00 | Outpatient (RCR) | payer OTHER, SELFPAY | END 2022-12-28 23:59 | disposition home or self-care (01) | LOC: MPT 06:00 | PROVIDERS: PCP Family Medicine; Visit Provider Student in an Organized Health Care Education/Training Program | DX: Z47.89 Encounter for other orthopedic aftercare (principal) | CPT/HCPCS: 97110; G0283 ==

== ENCOUNTER 2022-12-25 14:05 | Outpatient (CLI) | payer OTHER, SELFPAY | END 2022-12-25 14:06 | disposition home or self-care (01) | LOC: SPT 14:05 | PROVIDERS: PCP Family Medicine; Visit Provider Student in an Organized Health Care Education/Training Program | DX: Z46.89 Encounter for fitting and adjustment of other specified devices (principal); Z98.890 Other specified postprocedural states | CPT/HCPCS: 97760; L1812 ==

== ENCOUNTER 2022-12-29 06:00 | Outpatient (RCR) | payer OTHER, SELFPAY | END 2023-01-28 23:59 | disposition home or self-care (01) | LOC: MPT 06:00 | PROVIDERS: PCP Family Medicine; Visit Provider Student in an Organized Health Care Education/Training Program | DX: Z47.89 Encounter for other orthopedic aftercare (principal) | CPT/HCPCS: 97110; 97530; G0283 ==

== ENCOUNTER 2023-01-19 09:56 | Outpatient (CLI) | payer OTHER, SELFPAY ==
--- NOTE | 2023-01-19 | ECG_ITS ---
[facility] Test Date: 2023-01-19 Pat Name: Juancho Valencia Department: Room: Gender: Male Drafter Electronic: : 1965 Requested By: Rylee Dyer Order Number: [id number] Fox MD: Joshua Reis M.D. Interpretive Statements NAME OF STUDY: LEXISCAN SESTAMIBI STRESS TEST INDICATION: Coronary Artery Disease PROCEDURE: At the baseline, the EKG revealed normal sinus rhythm with a poor R wave progression. Possible old anteroseptal MA and some nonspecific ST changes in the inferior leads.. The baseline heart was 68 bpm with a blood pressue of 148/94 mm of Hg Lexiscan was infused over a period of 20 seconds. A total of 0.4 milligrams of Lexiscan was infused. The stress phase was continued for a total of 5 minutes. Heart rate at the end of the stress phase was 103 bpm with a blood pressure 171/112 mm of Hg. The EKG at the peak infusion revealed no significant changes. Sestamibi was injected 20 seconds after the Lexiscan infusion. Heart rate at the end of the recovery phase was 83 bpm with a blood pressure of 146/88 mm of Hg. CONCLUSION: 1. No significant EKG changes with the LexiScan infusion 2. No LexiScan induced chest pain or cardiac arrhythmia 3. Normal blood pressure and heart rate response 4. Sestamibi/sestamibi perfusion scan pending; see separate report. Electronically Signed On 01-22-2023 7:34:47 CDT by Joshua Reis M.D. [email or web address]
[2023-01-19 10:01] VITALS: BMI 33.5
--- NOTE | 2023-01-19 10:22 | NMCV_ITS ---
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 Images obtained in supine and prone position. SPECT RESULTS Technical Quality: Excellent Raw Data Analysis: Normal Image Corrections: No attenuation or motion correction applied Summed Stress Score: 5 Summed Rest Score: 7 Summed Difference Score: 1 PERFUSION FINDINGS A small area of moderately decreased tracer uptake was noted involving the mid anterolateral, mid inferolateral and apical lateral regions. Subtle reversibility is noted in the mid anterolateral region. FUNCTIONAL RESULTS (calculated via Gated SPECT) Stress Image LV EF (%): 67 Stress EDV (mL):110 TID: 1.02 Stress ESV (mL):36 FUNCTIONAL FINDINGS: Segmental wall motion analysis revealing no gross wall motion abnormalities IMPRESSIONS 1. Myocardial perfusion imaging revealing a small area of moderate decreases uptake in the mid anterolateral, mid inferolateral and apical lateral regions with a subtle area of reversibility in the mid anterolateral region suggesting myocardial scarring with a very small area of memo-infarction ischemia. 2. Normal LV ejection fraction 67%. 3. LV wall motion analysis revealing no gross wall motion abnormalities. 4. Normal LV volume Compared to the study from 11/29/2020 there may not be a significant change -the ischemic burden remains the same. Dr Joshua Reis MD [facility] (Electronically Signed) Final Date: 19 Jan 2023 14:46 S
[2023-01-19] MEDS: regadenoson 0.4 Mg/5 ml Syringe IVP (11:52)
[2023-01-19 12:19] VITALS: BP 146/88; PULSE 85
[2023-01-19] MEDS: ondansetron 2 mg/ML SDV 2 mL 4 MG IVP (12:19)
== END 2023-01-19 09:57 | disposition home or self-care (01) ==
LOC: CDL 09:58
PROVIDERS: PCP Family Medicine; Visit Provider Nurse Practitioner Family
DX: I25.10 Atherosclerotic heart disease of native coronary artery without angina pectoris (principal)
CPT/HCPCS: 36415; 78452; 93017; 96374; 96375; A9500; J2405; J2785

== ENCOUNTER 2023-01-29 06:00 | Outpatient (RCR) | payer OTHER, SELFPAY | END 2023-02-09 23:59 | disposition home or self-care (01) | LOC: MPT 06:00 | PROVIDERS: PCP Family Medicine; Visit Provider Student in an Organized Health Care Education/Training Program | DX: Z47.89 Encounter for other orthopedic aftercare (principal) | CPT/HCPCS: 97110; 97140; G0283 ==

== ENCOUNTER → 2023-05-01 16:02 | Outpatient (BNVA) | payer OTHER, SELFPAY | PROVIDERS: PCP Family Medicine; Visit Provider Emergency Medicine | DX: M25.561 Pain in right knee (principal) | CPT/HCPCS: 73562 ==

== ENCOUNTER → 2023-05-08 07:56 | Outpatient (BNVA) | payer OTHER, SELFPAY | PROVIDERS: PCP Family Medicine; Referring Provider Family Medicine; Visit Provider Student in an Organized Health Care Education/Training Program | DX: Z98.890 Other specified postprocedural states (principal); M25.561 Pain in right knee | CPT/HCPCS: 73560; 73565 ==

== ENCOUNTER 2023-05-13 15:13 | Outpatient (CLI) | payer OTHER, SELFPAY ==
--- NOTE | 2023-05-13 16:00 | MR_ITS ---
WS: [id number] MRI RIGHT KNEE NONCONTRAST TECHNIQUE: Axial PD, coronal PD fat sat, coronal PD, sagittal PD, and sagittal PD fat-sat images obta ined. CLINICAL INFORMATION: S83.249A - Other tear of medial meniscus, current injury,... COMPARISON: MRI 08/26/2022 FINDINGS: Distal quadriceps and patellar tendons are intact with hypertrophic patella. Small suprapatellar effu candace. ACL and PCL are intact. Reported partial interval medial meniscectomy since the prior examination. Expected postoperative aracelis nges involving the medial meniscus with similar appearing horizontal tear involving the posterior hor n extending to the free edge. Thinning of the medial meniscus with new subchondral edema involving th e medial tibial plateau. Small focal osteochondral defect involving the medial tibial plateau at the periphery with slight depression is new from previous likely due to acute injury or repetitive microt rauma. Additional edema extends into the tibial spines. Normal lateral tibial plateau. Medial and lateral collateral ligaments appear intact. Normal popliteus. Normal popliteal fossa. Mode rate chondromalacia patella. Prepatellar and infrapatellar soft tissue edema. IMPRESSION: 1. Postoperative changes medial meniscus with partial meniscectomy is new from previous. Thinning of the medial meniscus with persistent horizontal tear similar to previous extending to the free edge i nvolving the posterior horn. 2. Progressed chondromalacia involving the medial joint compartment with subchondral edema involving the femoral condyle. New edema involving the tibial plateau extending into the tibial spines. Osteoc hondral lesion involving the periphery of the medial tibial plateau is new from previous measuring 6 mm with associated edema. 3. Small suprapatellar effusion.a 4. Moderate chondromalacia patella. No subchondral edema. 5. No other significant changes compared to previous. [facility]bridge grading: grade III: partial-thickness cartilage loss with focal ulceration
== END 2023-05-13 15:14 | disposition home or self-care (01) ==
PROVIDERS: PCP Family Medicine; Visit Provider Family Medicine
DX: S83.249A Other tear of medial meniscus, current injury, unspecified knee, initial encounter (principal); X58.XXXA Exposure to other specified factors, initial encounter; M22.41 Chondromalacia patellae, right knee; M23.300 Other meniscus derangements, unspecified lateral meniscus, right knee; Z98.890 Other specified postprocedural states; M25.461 Effusion, right knee
CPT/HCPCS: 73721

== ENCOUNTER 2023-05-21 14:42 | Outpatient (CLI) | payer OTHER, SELFPAY ==
--- NOTE | 2023-05-21 15:30 | US_ITS ---
WS: [id number] ULTRASOUND SOFT TISSUES medial RIGHT knee. HISTORY: pain around meniscus COMPARISON: 05/13/2023 MRI TECHNIQUE: 2-D and color Doppler imaging is submitted. No soft tissue mass is noted along the medial RIGHT knee in the area of concern. No abnormality was n oted on the recent MRI of the knee either. There were some prominent varicosities in the medial RIGHT knee by MRI. IMPRESSION: No ultrasound soft tissue abnormality identified.
== END 2023-05-21 14:43 | disposition home or self-care (01) ==
LOC: RAD 14:44
PROVIDERS: PCP Family Medicine; Visit Provider Student in an Organized Health Care Education/Training Program
DX: M25.561 Pain in right knee (principal); Z98.890 Other specified postprocedural states; S83.249A Other tear of medial meniscus, current injury, unspecified knee, initial encounter; X58.XXXA Exposure to other specified factors, initial encounter
CPT/HCPCS: 76882

== ENCOUNTER → 2023-06-04 08:51 | Outpatient (BNVA) | payer OTHER, SELFPAY | PROVIDERS: PCP Family Medicine; Visit Provider Family Medicine | DX: I10 Essential (primary) hypertension (principal); J44.1 Chronic obstructive pulmonary disease with (acute) exacerbation; Z12.5 Encounter for screening for malignant neoplasm of prostate; M23.300 Other meniscus derangements, unspecified lateral meniscus, right knee; R39.11 Hesitancy of micturition; N52.9 Male erectile dysfunction, unspecified; F51.01 Primary insomnia; M62.830 Muscle spasm of back; I25.810 Atherosclerosis of coronary artery bypass graft(s) without angina pectoris; M79.18 Myalgia, other site; G89.29 Other chronic pain; I50.9 Heart failure, unspecified; J44.0 Chronic obstructive pulmonary disease with (acute) lower respiratory infection; N52.1 Erectile dysfunction due to diseases classified elsewhere; Z28.21 Immunization not carried out because of patient refusal; M23.203 Derangement of unspecified medial meniscus due to old tear or injury, right knee; E78.5 Hyperlipidemia, unspecified; N18.31 Chronic kidney disease, stage 3a; I50.21 Acute systolic (congestive) heart failure; Z79.899 Other long term (current) drug therapy | CPT/HCPCS: 80053; 80061; 81000; 85025; G0103 ==

== ENCOUNTER → 2024-12-27 10:19 | Outpatient (BNVA) | payer BC, SELFPAY | PROVIDERS: PCP Family Medicine; Visit Provider Family Medicine | DX: I25.810 Atherosclerosis of coronary artery bypass graft(s) without angina pectoris (principal); J44.9 Chronic obstructive pulmonary disease, unspecified; I50.21 Acute systolic (congestive) heart failure; E78.5 Hyperlipidemia, unspecified; N18.31 Chronic kidney disease, stage 3a | CPT/HCPCS: 80053; 80061; 83880; 85025 ==

== ENCOUNTER → 2025-03-07 14:03 | Outpatient (BNVA) | payer BC, SELFPAY | PROVIDERS: PCP Family Medicine; Visit Provider Family Medicine | DX: I10 Essential (primary) hypertension (principal); I50.21 Acute systolic (congestive) heart failure; E78.5 Hyperlipidemia, unspecified; Z12.5 Encounter for screening for malignant neoplasm of prostate | CPT/HCPCS: 80048; 83735; G0103 ==

== ENCOUNTER → 2025-04-06 09:23 | Outpatient (BNVA) | payer BC, MEDICAID, SELFPAY | PROVIDERS: PCP Family Medicine; Visit Provider Internal Medicine Cardiovascular Disease | DX: E78.5 Hyperlipidemia, unspecified (principal) | CPT/HCPCS: 80061 ==

== ENCOUNTER → 2025-05-25 13:55 | Outpatient (BNVA) | payer BC, MEDICAID, SELFPAY | PROVIDERS: PCP Family Medicine; Referring Provider Internal Medicine Cardiovascular Disease; Visit Provider Internal Medicine Cardiovascular Disease | DX: E78.5 Hyperlipidemia, unspecified (principal) | CPT/HCPCS: 80061 ==

== ENCOUNTER → 2025-07-11 14:26 | Outpatient (BNVA) | payer BC, SELFPAY | PROVIDERS: PCP Family Medicine; Visit Provider Family Medicine | DX: I50.21 Acute systolic (congestive) heart failure (principal); N18.31 Chronic kidney disease, stage 3a | CPT/HCPCS: 80048 ==